=== PATIENT | female | born 1975 | race Caucasian/White ===

== ENCOUNTER 2020-11-16 08:59 | Emergency (ER) | payer MEDICAID, SELFPAY ==
--- NOTE | ~2020-11-16 | XR_ITS ---
EXAMINATION: XR ankle RT min 3V INDICATION: Right ankle pain TECHNIQUE: Four views of the right ankle are obtained. COMPARISON: None available FINDINGS: There is soft tissue swelling of ankle, particularly at the lateral aspect. A tiny heteroto pic ossification is seen distal to the lateral malleolus. Bone alignment is normal. Plantar calcaneal enthesophyte is noted. There is mild osteoarthritis of the midfoot. IMPRESSION: 1. Tiny heterotopic ossification distal to the lateral malleolus likely representing avulsion injury. Reviewed, dictated and finalized at location B. IMPRESSION: 1. Tiny heterotopic ossification distal to the lateral malleolus likely represe nting avulsion injury.
[2020-11-16 09:16] VITALS: BP 160/101; PULSE 88; RESP 16; TEMP 36.7; O2SAT 100
--- NOTE | 2020-11-16 09:39 | ED.LOWEXIN ---
HPI - Extremity Injury (Lower) General Chief Complaint: Extremity Injury, Lower <Margareth Renteria PA-C - Last Filed: 11/16/20 10:02> Stated Complaint: R ankle pain <Margareth Renteria PA-C - Last Filed: 11/16/20 10:02> Time Seen by Provider: 11/16/20 09:09 <Margareth Renteria PA-C - Last Filed: 11/16/20 10:02> Source: patient <Margareth Renteria PA-C - Last Filed: 11/16/20 10:02> Mode of arrival: wheelchair <Margareth Renteria PA-C - Last Filed: 11/16/20 10:02> Limitations: no limitations <Margareth Renteria PA-C - Last Filed: 11/16/20 10:02> History of Present Illness HPI Narrative: This is a 45-year-old female that presents the emergency department for right ankle injury sustained last night. Reports she was walking down the steps and stepped on a toy. Reports this caused her to twist her ankle. Reports that she has had pain and swelling of the lateral ankle. This is made it difficult for her to bear weight. Denies other injuries, decreased range of motion or numbness. <Margareth Renteria PA-C - Last Filed: 11/16/20 10:02> Related Data Allergies/Adverse Reactions: Allergies Allergy/AdvReac Type Severity Reaction Status Date / Time No Known Allergies Allergy Verified 11/16/20 09:22 <Margareth Renteria PA-C - Last Filed: 11/16/20 10:02> Review of Systems Review of Systems: Narrative: CONSTITUTIONAL: Denies fever MUSCULOSKELETAL: Reports joint pain, and myalgia. NEUROLOGIC: Denies numbness <Margareth Renteria PA-C - Last Filed: 11/16/20 10:02> All systems reviewed & are unremarkable except as noted in HPI and below <Margareth Renteria PA-C - Last Filed: 11/16/20 10:02> [facility] Social History Social History: Social History (Updated 11/16/20 @ 09:40 by Margareth Renteria PA-C) Smoking status: Current every day smoker Substance use: current Substance use type: marijuana <Margareth Renteria PA-C - Last Filed: 11/16/20 10:02> Exam Narrative: Exam Narrative: GENERAL: Well-appearing, well-nourished, and in no acute distress. HEAD: Normocephalic, atraumatic. EYES: EOMI. EXTREMITIES: Normal range of motion. Moderate edema about the right ankle over the lateral malleoli, tender to palpation. Nontender to palpation of the proximal fibula. Normal DP pulses. Normal sensation SKIN: Warm, dry, no rash. NEURO: No focal deficits. Alert and oriented x3. PSYCH: Normal mood and affect <Margareth Renteria PA-C - Last Filed: 11/16/20 10:02> Course Vital Signs Vital signs: Vital Signs Temperature 98.0 F 11/16/20 09:16 Pulse Rate 88 11/16/20 09:16 Respiratory Rate 16 11/16/20 09:16 Blood Pressure 160/101 H 11/16/20 09:16 Pulse Oximetry 100 11/16/20 09:16 Temperature 98.0 F 11/16/20 09:16 Pulse Rate 80 11/16/20 10:38 Respiratory Rate 14 11/16/20 10:38 Blood Pressure 135/94 H 11/16/20 10:38 Pulse Oximetry 99 11/16/20 10:38 <Margareth Renteria PA-C - Last Filed: 11/16/20 10:02> Vital Signs Temperature 98.0 F 11/16/20 09:16 Pulse Rate 88 11/16/20 09:16 Respiratory Rate 16 11/16/20 09:16 Blood Pressure 160/101 H 11/16/20 09:16 Pulse Oximetry 100 11/16/20 09:16 Temperature 98.0 F 11/16/20 09:16 Pulse Rate 80 11/16/20 10:38 Respiratory Rate 14 11/16/20 10:38 Blood Pressure 135/94 H 11/16/20 10:38 Pulse Oximetry 99 11/16/20 10:38 <Radha Jaimes MD - Last Filed: 11/16/20 15:15> MDM - Extremity Injury (Lower) MDM Narrative Medical decision making narrative: Patient presents the emergency department for right ankle pain after an injury last night. Patient is neurovascularly intact. Right ankle x-ray shows a heterotopic ossification distal to the lateral malleolus, likely avulsion fracture. Patient placed in short leg posterior will be given orthopedics for follow-up. She was given warnings to return to the ER <Margareth Renteria PA-C - Last Filed: 11/16/20 10:02> Imaging Data Radiologist's impress
[2020-11-16 10:38] VITALS: BP 135/94; PULSE 80; RESP 14; O2SAT 99
== END 2020-11-16 10:38 | disposition home or self-care (01) ==
PROVIDERS: Emergency Provider General Practice
DX: S82.891A Other fracture of right lower leg, initial encounter for closed fracture (principal); F17.200 Nicotine dependence, unspecified, uncomplicated; X50.9XXA Other and unspecified overexertion or strenuous movements or postures, initial encounter
CPT/HCPCS: 29515; 73610; 99284

== ENCOUNTER 2024-07-19 19:58 | Emergency (ER) | payer BC, SELFPAY ==
--- NOTE | ~2024-07-19 | XR_ITS ---
EXAMINATION: XR chest 2V DATE: 07/19/2024 20:22 INDICATION: Shortness of breath. TECHNIQUE: Frontal and lateral views of the chest were obtained on 3 radiographs. COMPARISON: Chest 2 views 12/09/2018 FINDINGS: There is no pneumonia, pleural effusion, or pneumothorax. The heart size is normal. Surgica l clips in the right upper quadrant are likely from cholecystectomy. IMPRESSION: 1. No acute cardiopulmonary disease. Reviewed, dictated and finalized at location A. TYPIST
--- NOTE | 2024-07-19 19:59 | ECG_ITS ---
Test Date: 2024-07-19 20:11:50 Measurements Intervals [place] Rate: 87 P: 76 FL: 132 QRS: 31 QRSD: 82 T: 39 QT: 348 QTc: 421 Interpretive Statements SINUS RHYTHM POSSIBLE LEFT ATRIAL ENLARGEMENT [-0.1mV P WAVE IN V1/V2] No previous ECG available for comparison Electronically Signed On 07-19-2024 21:23:57 TEACHING ARTIST by Taniya Puente M.D.
[2024-07-19 20:00] VITALS: BP 143/84; PULSE 94; RESP 19; TEMP 36.8; O2SAT 99
[2024-07-19 20:44] LABS: Basophils Absolute Auto 0.1 K/mm3 (0.0-0.1); Basophils Percent Auto 0.6 % (0.2-1.2); Eosinophils Absolute Auto 0.2 K/mm3 (0-0.3); Eosinophils Percent Auto 2.6 % (0-4.4); Hemoglobin 13.5 g/dL (12.0-15.0); Immature Granulocyte Absolute 0.02 K/mm3 (0.00-0.031); Immature Granulocyte Percent A 0.2 % (0-0.5); Lymphocytes Absolute Auto 2.83 K/mm3 (0.9-3.2); Lymphocytes Percent Auto 32.4 % (18.3-44.2); Mean Corpuscular HGB Conc 32.9 g/dl (32-36); Mean Platelet Volume 9.6 fl (7.4-10.4); Monocytes Absolute Auto 0.8 K/mm3 (0.1-0.6); Monocytes Percent Auto 9.3 % (2.6-8.5); Neutrophils Absolute Auto 4.8 K/mm3 (1.3-6.7); Neutrophils Percent Auto 54.9 % (45.5-73.1); Platelet Count Result 284 k/mm3 (150-375); Red Blood Count 4.36 M/mm3 (4.2-5.4); White Blood Count 8.7 K/mm3 (4.5-10.0)
[2024-07-19 21:10] LABS: Alanine Aminotransferase 14 U/L (6-35); Albumin Level 4.5 g/dL (3.5-5.1); Alkaline Phosphatase 63 U/L (38-126); Anion Gap 4 mmol/L (4-12); Aspartate Amino Transferase 21 U/L (14-36); Bilirubin,Total 0.6 mg/dL (0.2-1.3); Blood Urea Nitrogen 14 mg/dL (7-17); Calcium 8.7 mg/dL (8.4-10.2); Carbon Dioxide 29 mmol/L (22-30); Chloride 109 mmol/L (98-107); Estimated CRCL calculation 65 ml/min; Estimated Glomerular Filt Rate > 60; Glucose 81 mg/dL (65-110); Potassium 3.9 mmol/L (3.4-5.0); Sodium 142 mmol/L (137-145)
[2024-07-19 21:57] VITALS: BP 132/85; PULSE 84; RESP 17; O2SAT 100
[2024-07-19 22:40] LABS: Influenza A QL RT-PCR Negative (Negative); Influenza B QL RT-PCR Negative (Negative); RSV RNA, RT-PCR Negative (Negative); SARS-CoV-2 RNA PCR Negative (Negative)
[2024-07-19 22:42] VITALS: PULSE 86; RESP 18
[2024-07-19] MEDS: IPRATROPIUM 0.5 MG/ALBUTEROL SULFATE 2.5 MG AMPUL.NEB 3 ML INHALATION (22:42)
[2024-07-19] MEDS: predniSONE 20 MG TABLET 60 MG PO (22:58)
[2024-07-19 22:59] VITALS: BP 115/75; PULSE 94; RESP 20; O2SAT 98
[2024-07-19 23:05] LABS: Troponin I < 0.012 ng/mL (0.000-0.034)
--- NOTE | 2024-07-19 23:35 | ED_ITS ---
HPI - General Adult General Chief complaint: Shortness of Breath/Dyspnea Stated complaint: possible pneumonia Time Seen by Provider: 07/19/24 22:23 History of Present Illness HPI narrative: patient is a 48-year-old female presents emergency department with chief complaint of cough runny nose and lack of energy. The patient reports that she has had pneumonia before in the past reports he does smoke cigarettes and is concerned that she may have pneumonia the patient reports he has had some discomfort on the left side of her chest the patient reports that his tight feeling but does report that she has been wheezing. Related Data Allergies Allergy/AdvReac Type Severity Reaction Status Date / Time No Known Allergies Allergy Verified 11/16/20 09:22 Review of Systems 2 Review of Systems: A 10 system review of systems was completed on the patient and is negative except for what is stated in the HPI. Nursing and ancillary documentation was reviewed. [facility] Social History Social History Smoking status: Current every day smoker Substance use: current Substance use type: marijuana Exam 2 Narrative: GENERAL: Well-appearing, well-nourished, and in no acute distress. HEAD: Normocephalic, atraumatic. EYES: PERRLA and EOMI. ENT: Nares clear, no rhinorrhea or epistaxis. Mucous membranes moist. NECK: Supple. CHEST: Scattered wheezes to auscultation. No respiratory distress. HEART: Regular rate and rhythm. No murmur heard. Normal peripheral pulses. ABDOMEN: Soft, nontender, nondistended, normal active bowel sounds. EXTREMITIES: Normal range of motion. No edema. SKIN: Warm, dry, no rash. NEURO: No focal deficits. Alert and oriented x3. PSYCH: Normal mood and affect. Course Vital Signs Vital signs: Vital Signs Temperature 36.8 C 07/19/24 20:00 Pulse Rate 94 07/19/24 20:00 Respiratory Rate 19 07/19/24 20:00 Blood Pressure 143/84 H 07/19/24 20:00 Pulse Oximetry 99 07/19/24 20:00 Oxygen Delivery Room Air 07/19/24 20:00 Temperature 36.8 C 07/19/24 20:00 Pulse Rate 94 07/19/24 22:59 Respiratory Rate 20 07/19/24 22:59 Blood Pressure 115/75 07/19/24 22:59 Pulse Oximetry 98 07/19/24 22:59 Oxygen Delivery Room Air 07/19/24 21:57 Medical Decision Making MDM Narrative Medical decision making narrative: differential diagnosis includes pneumonia, bronchospasm, bronchitis, upper respiratory infection, ACS EKG showed no acute ischemic changes troponin was negative patient is feeling much better after receiving a DuoNeb and receiving steroids chest x-ray showed no focal infiltrate Vital Signs Vital Signs: Vital Signs Temperature 36.8 C 07/19/24 20:00 Pulse Rate 94 07/19/24 20:00 Respiratory Rate 19 07/19/24 20:00 Blood Pressure 143/84 H 07/19/24 20:00 Pulse Oximetry 99 07/19/24 20:00 Oxygen Delivery Room Air 07/19/24 20:00 Temperature 36.8 C 07/19/24 20:00 Pulse Rate 94 07/19/24 22:59 Respiratory Rate 20 07/19/24 22:59 Blood Pressure 115/75 07/19/24 22:59 Pulse Oximetry 98 07/19/24 22:59 Oxygen Delivery Room Air 07/19/24 21:57 Lab Data 07/19/24 20:37 07/19/24 20:36 Labs: Lab Results 07/19/24 07/19/24 07/19/24 Range/Units 20:36 20:37 21:56 WBC 8.7 (4.5-10.0) K/mm3 RBC 4.36 (4.2-5.4) M/mm3 Hgb 13.5 (12.0-15.0) g/dL Hct 41.0 (37.0-47.0) % MCV 94.0 (80-100) fl MCH 31.0 (26-34) pg MCHC 32.9 (32-36) g/dl RDW 14.0 (11.5-14.5) % Plt Count 284 (150-375) k/mm3 MPV 9.6 (7.4-10.4) fl Immature Gran % (Auto) 0.2 (0-0.5) % Neut % (Auto) 54.9 (45.5-73.1) % Lymph % (Auto) 32.4 (18.3-44.2) % [place] % (Auto) 9.3 H (2.6-8.5) % Eos % (Auto) 2.6 (0-4.4) % Baso % (Auto) 0.6 (0.2-1.2) % Lymph # (Auto) 2.83 (0.9-3.2) K/mm3 [place] # (Auto) 0.8 H (0.1-0.6) K/mm3 Eos # (Auto) 0.2 (0-0.3) K/mm3 Baso # (Auto) 0.1 (0.0-0.1) K/mm3 Abs Immat Gran (auto) 0.02 (0.00-0.031) K/mm3 Absolute Neuts (auto) 4.8 (1.3-6.7) K/mm3 Absolute Nucleated RBC 0.000 (0.0-0.012) K/mm3 Nucleated RBC % 0.0 (0.0-0.2) % Sodium 142 (137-145) mmol/L Potassium 3.9 (3.4-5.0) mmol/L Chloride 109 H (98-107) mmol/L Carbon Dioxide 29 (22-30) mmol/L Anion Gap 4 (4-12) mmol/L BUN 14 (7-17) mg/dL Creatinine 0.90 (0.7-1.0) mg/dL Estim Creat Clear Calc 65 ml/min Estimated GFR > 60 (59 - ) Glucose 81 (65-110) mg/dL Calcium 8.7 (8.4-10.2) mg/dL Total Bilirubin 0.6 (0.2-1.3) mg/dL AST 21 (14-36) U/L ALT 14 (6-35) U/L Alkaline Phosphatase 63 (38-126) U/L Troponin I < 0.012 (0.000-0.034) ng/mL Total Protein 8.0 (6.3-8.2) g/dL Albumin 4.5 (3.5-5.1) g/dL Influenza A (RT-PCR) Negative (Negative) Influenza B (RT-PCR) Negative (Negative) RSV (RT-PCR) Negative (Negative) SARS-CoV-2 RNA (RT-PCR) Negative (Negative) Discharge Plan Discharge Clinical Impression: Acute bronchitis, viral Patient Disposition: Home, Self-Care Condition: Stable Instructions: Antibiotic Form, Acute Bronchitis (ED) Patient Language: [place] Prescriptions: New albuterol sulfate 90 mcg/actuation HFA aerosol inhaler 2 puff inhalation QID PRN (Reason: shortness of breath or wheezing) Qty: 8.5 0RF prednisone 20 mg tablet 40 mg PO DAILY 5 Days Qty: 10 0RF benzonatate 200 mg capsule 200 mg PO TID PRN (Reason: cough) Qty: 21 0RF No Action hydrocodone-acetaminophen 5-325 mg tablet 1 tablet PO Q6H PRN (Reason: pain) Qty: 10 0RF Follow-up/Referrals: PHYSICIAN,FURNACE OPERATOR AND TENDER [Primary Care Provider] - Leonidas Ochoa MD [Physician] - Time of Disposition: 23:42
[2024-07-19 23:48] VITALS: BP 120/73; PULSE 89; RESP 20; O2SAT 95
== END 2024-07-19 23:49 | disposition home or self-care (01) ==
PROVIDERS: Emergency Provider Emergency Medicine
DX: J20.8 Acute bronchitis due to other specified organisms (principal); Z20.822 Contact with and (suspected) exposure to COVID-19; F17.210 Nicotine dependence, cigarettes, uncomplicated; Z87.01 Personal history of pneumonia (recurrent)
CPT/HCPCS: 36415; 71046; 80053; 84484; 85025; 87637; 93005; 94640; 99284; J7512